=== PATIENT | female | born 1950 | race Caucasian/White ===

== ENCOUNTER → 2017-11-17 | Outpatient (CLI) | payer MEDICARE, BC ==
[~2017-11-17] MED LIST: IOPAMIDOL 370 MG/ML 200 ML INFUS..BTL INJ ONE; SODIUM CHLORIDE 0.9% 50ML 50 ML ONE
[2017-11-17 15:30] LABS: BLOOD UREA NITROGEN 16 mg/dL (7-26); BUN/CREATININE RATIO 20 (6-25); CREATININE, SERUM 0.79 mg/dL (0.57-1.11); EST GLOMERULAR FILTRATION RATE > 60 ML/MIN (60-)
--- NOTE | 2017-11-17 17:00 | Diagnostic Imaging Report ---
PROCEDURE:CT ABDOMEN AND PELVIS WITH CONTRAST COMPARISON:None. INDICATIONS:RECURRENT URINARY TRACT INFECTIONS TECHNIQUE: Multidetector CT scanning of the abdomen and pelvis was performed after the administration of 100 cc of nonionic contrast. Coronal and sagittal reformations were obtained. Routine protocol performed. FINDINGS: Lung bases: Mild bulging of the pleura of the right lung base. No pleural effusions. No intrapulmonary mass. Visualized portion of the mediastinum is normal. Liver: Diffusely decreased attenuation without mass. The right lobe measures 18 cm in length. Biliary: The gallbladder is present and normal in morphology. No evidence of gallstone. The biliary tree is normal Spleen: Top normal in size without mass or ductal dilatation. Pancreas: Normal enhancement. No mass or ductal dilatation. There is mild fatty atrophy. Adrenal Glands: No evidence of mass. Kidneys: Symmetric enhancement. There is prominence of the right renal collecting system. No evidence of renal calculus. No cortical mass. The left kidney contains a punctate catheter was in the lower pole. No cortical mass. No hydronephrosis. Gastrointestinal: The stomach is collapsed. The small bowel is normal in diameter with normal wall thickness. The large bowel is normal in diameter with normal wall thickness. The appendix is normal. Vasculature: The aorta and IVC are normal in diameter. There are scattered atherosclerotic calcifications of the aorta. Peritoneum/Retroperitoneum: Mesenteric lymph nodes are mildly prominent and increased in number measuring up to 2.2 cm. There is mild haziness of the small bowel mesentery. No enlarged pelvic or inguinal lymph nodes. Bladder: Normal. No ureteral dilatation. Reproductive organs: The uterus is present and normal in morphology. There are no adnexal masses. Musculoskeletal: Mild degenerative changes of the spine consistent with age. There are mild degenerative changes of the hips and pubic symphysis. There is no evidence of lytic or blastic lesion. CONCLUSION: 1. Prominent right renal pelvis. This could be secondary to UPJ obstruction from a crossing vessel. This can be confirmed with CT urogram. 2. Tiny nonobstructing calculus in the left kidney. 3. Hepatic steatosis and hepatomegaly. Mild pancreas lipomatosis. 4. Mildly prominent mesenteric lymph nodes with haziness of the small bowel mesentery suggestive of mesenteric panniculitis. 5. Degenerative changes as described above. 6. Atherosclerosis. Dictated by: Janneth Rubio M.D. on 11/17/2017 at 17:08 Electronically approved by: Janneth Rubio M.D. on 11/17/2017 at 17:08
== END ==
LOC: CT 14:37
PROVIDERS: ATTEND Urology
DX: N39.0 Urinary tract infection, site not specified (principal)
CPT/HCPCS: 36415; 74177; 82565; 84520; Q9967